=== PATIENT | male | born 2005 | race Caucasian/White ===

== ENCOUNTER 2024-02-10 17:55 | Emergency (ER) | payer MEDICAID ==
[2024-02-10 18:06] VITALS: BP 157/87; PULSE 99; RESP 20; TEMP 97.6; O2SAT 98
[2024-02-10] MEDS ORDERED: Augmentin 875-125 Tablet ONE (18:33)
--- NOTE | 2024-02-10 18:33 | ERPHSYRPT ---
- History of Present Illness Time Seen by Provider: 02/10/24 18:22 Source: patient Exam Limitations: no limitations Patient Subjective Stated Complaint: PT states "I have an ear infection in both ears, feels like I have earplugs in both ears." Triage Nursing Assessment: pt presented alert and orietned X3, skin wpd. PT ambulates with an upright steady giat, able to speak in clear full sentences. Physician History: 18yo m presents via private vehicle for 2d b/l ear pain and fullness. Pt reports it started in his left ear, pain in the left ear resolved last night and is now only fullness, right ear started hurting this AM. Pt denies any fevers at home. Pt does report some associated sinus congestion and runny nose. Pt also reports some muffled hearing b/l. Timing/Duration: abrupt onset Severity: mild ENT Location: ear (R), ear (L) Prearrival Treatment: no prearrival treatment Associated Symptoms: ear pain (R), ear pain (L), hearing loss, nasal congestion/drainage, No fever, No dizziness, No ear drainage, No headache, No sore throat, No difficulty swallowing Allergies/Adverse Reactions: No Known Drug Allergies Allergy (Verified 02/10/24 18:06) Hx Tetanus, Diphtheria Vaccination/Date Given: No Hx Influenza Vaccination/Date Given: No Hx Pneumococcal Vaccination/Date Given: No Immunizations Up to Date: No Travel Risk - International Travel Have you traveled outside of the country in past 3 weeks: No - Emerging Infectious Disease Are you exhibiting symptoms associated with any current EIDs: No - Review of Systems Constitutional: No Symptoms Ears, Nose, & Throat: Ear Pain, Hearing Changes, Nose Congestion, Sinus Drainage, No Ear Discharge Respiratory: No Symptoms Cardiac: No Symptoms - Past Medical History Pertinent Past Medical History: No - Past Surgical History Past Surgical History: No - Social History Smoking Status: Current every day smoker How long have you smoked: couple yea Exposure to second hand smoke: Yes Drug Use: none - Social Determinants of Health Will the patient participate in the screening: Declined to provide - Nursing Vital Signs Nursing Vital Signs: Initial Vital Signs Temperature 97.6 F 02/10/24 18:02 Pulse Rate 99 H 02/10/24 18:02 Respiratory Rate 20 02/10/24 18:02 Blood Pressure 157/87 02/10/24 18:02 O2 Sat by Pulse Oximetry 98 02/10/24 18:02 Pain Scale Pain Intensity 5 - Physical Exam General Appearance: no apparent distress, alert Eye Exam: bilateral eye: normal inspection, PERRL, EOMI Ear Exam: bilateral ear: tenderness, TM red, TM bulging Nasal Exam: normal inspection Throat Exam: normal, pharynx normal Cardiovascular/Respiratory Exam: chest non-tender, no respiratory distress SpO2 Interpretation: normal SpO2: 98 O2 Delivery: Room Air - Progress Progress: pain not gone completely Medical Desision Making - Diagnostic Testing Diagnostic test were ordered, analyzed, and reviewed by me: No - Risk of complications Minimal Risk: Minimal risk of morbidity - Departure Departure Disposition: Home Clinical Impression: Bilateral acute otitis media Condition: Stable Critical Care Time: No Additional Instructions: recommend tylenol/ibuprofen for discomfort complete 7 day course of antibiotic sent to pharmacy return to ED if: develop fevers that do not respond to tylenol, develop drainage from the ears, develop severe headache on the sides of your head Prescriptions: Amoxicillin/Potassium Clav [Amox Tr-K Clv 875-125 mg Tab] 1 each PO BID 7 Days #13 tablet
[2024-02-10] MEDS: Augmentin 875-125 Tablet PO ONE (18:34)
== END 2024-02-10 19:05 | disposition home or self-care (01) ==
LOC: ED 17:55
DX: H66.93 Otitis media, unspecified, bilateral (principal); H92.03 Otalgia, bilateral; Z79.899 Other long term (current) drug therapy; Z72.0 Tobacco use
CPT/HCPCS: 99281; A9270-GY